=== PATIENT | female | born 1990 | race American Indian/Alaskan Native ===

== ENCOUNTER 2016-07-26 13:51 | Outpatient (CLI) | payer MEDICAID ==
[2016-07-26 14:22] VITALS: BP 107/57
--- NOTE | 2016-07-26 14:32 | Event Note ---
Date: 07/26/16 S; Presents to hospital today after being stopped by the police. She told them she was having contractions and was taken to the hospital by EMS. She is a with a twin . ALAN 08/23/2016. She has late PNC and has not been compliant with care. States last U/S was 2 months ago. Last documented positions of the twins was Vertex, breech. A: Twin gestation @ 36 weeks P: Growth U/S today.
--- NOTE | 2016-07-26 20:47 | Ultrasound Report ---
FINAL REPORT PROCEDURE: US OB \T\gt; = 14 WK FETUS ADD GEST TECHNIQUE: Two-dimensional ultrasound is performed of twin gestation with anatomy survey in Doppler evaluation of heart rate. HISTORY: twin gestation /limited care COMPARISON: No prior studies are available for comparison. FINDINGS: Twin a: Twin live IUP is seen Position: Cephalic Placenta-position/membranes: Anterior and grade 1, without previa . Amniotic fluid volume: Normal MATERNAL: Uterus: Within normal limits. Cervix length: 3.2 cm. Internal Os: Closed. FETUS: Heart rate and rhythm: 129 BPM, Regular . anatomic survey: Intracranial evaluation is limited due to lie. Visualized portions of the spine display no abnormalities. Four-chamber heart, stomach, kidneys, bladder, and three-vessel cord are seen. Cord insertion is not well seen. MEASUREMENTS: BPD: 8.8 cm HC: 31.8 cm AC: 32.1 cm FL: 6.6 cm Mean Gestational Age (composite criteria): 35 weeks 3 days Ratio biometry: Normal. Estimated Weight: 2686 grams. Twin B: Position: Cephalic Placenta-position/membranes: Anterior grade 1, without previa . Amniotic fluid volume: Normal MATERNAL: Uterus: Within normal limits. Cervix length: 3.2 cm. Internal Os: Closed. FETUS: Heart rate and rhythm: 169 BPM, Regular . anatomic survey: There is no hydrocephalus. Posterior fossa is not well seen. Visualized portions of the spine display no abnormalities but spine is not well visualized throughout its entire course. Four-chamber heart, stomach, kidneys, bladder, and three-vessel cord are seen. Cord insertion is not well seen. MEASUREMENTS: BPD: 8.9 cm HC: 31.8 cm AC: 31.8 cm. FL: 7.0 cm Mean Gestational Age (composite criteria): 36 weeks 0 days Ratio biometry: Normal. Estimated Weight: 2800 grams. IMPRESSION: Twin live intrauterine gestation at 36 weeks, 0 days. anatomy survey is limited due to late gestation and lie. No abnormalities are seen with the visualized portions of the anatomy.
--- NOTE | 2016-07-26 20:48 | Ultrasound Report ---
FINAL REPORT PROCEDURE: US OB \T\gt; = 14 WEEKS FETUS TECHNIQUE: Real-time transabdominal sonography of the uterus, placenta, amniotic fluid, adnexa, and fetus was performed with image documentation. Detailed anatomic examination was performed. Measurements were obtained to determine age/size. M-mode Doppler was used to document heartbeat. CPT 39677 HISTORY: twin gestation /limited care COMPARISON: No prior studies are available for comparison. FINDINGS: Twin a: Twin live IUP is seen Position: Cephalic Placenta-position/membranes: Anterior and grade 1, without previa . Amniotic fluid volume: Normal MATERNAL: Uterus: Within normal limits. Cervix length: 3.2 cm. Internal Os: Closed. FETUS: Heart rate and rhythm: 129 BPM, Regular . anatomic survey: Intracranial evaluation is limited due to lie. Visualized portions of the spine display no abnormalities. Four-chamber heart, stomach, kidneys, bladder, and three-vessel cord are seen. Cord insertion is not well seen. MEASUREMENTS: BPD: 8.8 cm HC: 31.8 cm AC: 32.1 cm FL: 6.6 cm Mean Gestational Age (composite criteria): 35 weeks 3 days Ratio biometry: Normal. Estimated Weight: 2686 grams. Twin B: Position: Cephalic Placenta-position/membranes: Anterior grade 1, without previa . Amniotic fluid volume: Normal MATERNAL: Uterus: Within normal limits. Cervix length: 3.2 cm. Internal Os: Closed. FETUS: Heart rate and rhythm: 169 BPM, Regular . anatomic survey: There is no hydrocephalus. Posterior fossa is not well seen. Visualized portions of the spine display no abnormalities but spine is not well visualized throughout its entire course. Four-chamber heart, stomach, kidneys, bladder, and three-vessel cord are seen. Cord insertion is not well seen. MEASUREMENTS: BPD: 8.9 cm HC: 31.8 cm AC: 31.8 cm. FL: 7.0 cm Mean Gestational Age (composite criteria): 36 weeks 0 days Ratio biometry: Normal. Estimated Weight: 2800 grams. IMPRESSION: Twin live intrauterine gestation at 36 weeks, 0 days. anatomy survey is limited due to late gestation and lie. No abnormalities are seen with the visualized portions of the anatomy.
== END 2016-07-26 18:18 | disposition home or self-care (01) ==
LOC: TRG 13:51 → LD 14:19 → TRG 18:18
PROVIDERS: ATTEND Obstetrics & Gynecology
DX: O30.003 Twin pregnancy, unspecified number of placenta and unspecified number of amniotic sacs, third trimester (principal); O47.03 False labor before 37 completed weeks of gestation, third trimester; Z3A.36 36 weeks gestation of pregnancy
CPT/HCPCS: 59025; 76805; 76810